=== PATIENT | female | born 1985 | race Caucasian/White ===

== ENCOUNTER 2016-05-11 18:59 | Emergency (ER) | payer OTHER | END 2016-05-11 21:56 | disposition home or self-care (01) | LOC: ER 18:59 | DX: L02.413 Cutaneous abscess of right upper limb (principal); L03.113 Cellulitis of right upper limb; F17.210 Nicotine dependence, cigarettes, uncomplicated; Z88.5 Allergy status to narcotic agent; Z88.8 Allergy status to other drugs, medicaments and biological substances; Z79.899 Other long term (current) drug therapy | CPT/HCPCS: 36415; 96365; 96375; J3370 ==

== ENCOUNTER 2016-05-12 19:12 | Emergency (ER) | payer OTHER | END 2016-05-12 21:33 | disposition home or self-care (01) | LOC: ER 19:12 | DX: Z48.01 Encounter for change or removal of surgical wound dressing (principal); F41.9 Anxiety disorder, unspecified; F17.210 Nicotine dependence, cigarettes, uncomplicated; Z23 Encounter for immunization; Z88.5 Allergy status to narcotic agent; Z88.8 Allergy status to other drugs, medicaments and biological substances | CPT/HCPCS: 90471; 96365; J3370 ==